=== PATIENT | female | born 1985 | race Two or more races ===

== ENCOUNTER 2017-11-06 17:33 | Emergency (ER) | payer OTHER ==
[2017-11-06 17:43] VITALS: BP 126/57
[2017-11-06] MEDS ORDERED: ACETAMINOPHEN 325 MG TABLET PO ONE (18:44)
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
[2017-11-06] MEDS ORDERED: LIDOCAINE 5% (700 MG) TRANSDERMAL ADH..PATCH TP ONE (19:23)
== END 2017-11-06 19:41 | disposition home or self-care (01) ==
LOC: ER 17:33
DX: S16.1XXA Strain of muscle, fascia and tendon at neck level, initial encounter (principal); S29.012A Strain of muscle and tendon of back wall of thorax, initial encounter; M54.2 Cervicalgia; M54.89 Other dorsalgia; V49.40XA Driver injured in collision with unspecified motor vehicles in traffic accident, initial encounter
CPT/HCPCS: 72070; 72125; 99284

== ENCOUNTER 2017-12-18 14:58 | Emergency (ER) | payer OTHER ==
[2017-12-18] MEDS ORDERED: RINGERS SOLUTION,LACTATED 1,000 ML IV PRN (16:02)
[2017-12-18] MEDS ORDERED: METOCLOPRAMIDE HCL INJ/PF 10 MG/2 ML SDV IV ONE (16:03)
--- NOTE | 2017-12-18 16:05 | ER Document Report ---
ED Medical Screen (RME) - General Chief Complaint: Abdominal Pain Stated Complaint: VOMITING Time Seen by Provider: 12/18/17 16:01 TRAVEL OUTSIDE OF THE [place] IN LAST 30 DAYS: No - HPI Notes: 12/18/17 16:05 coming in today for nausea vomiting states last diagnosis hyperemesis gravidarum. Patient states she did not tolerate Zofran during her . Denies any other complications. Denies any other medical issues. - Related Data Allergies/Adverse Reactions: No Known Allergies Allergy (Verified 11/06/17 17:34) Past Medical History - Social History Chew tobacco use (# tins/day): No Frequency of alcohol use: None Drug Abuse: None Renal/ Medical History: Denies: Hx Peritoneal Dialysis - Immunizations Hx Diphtheria, Pertussis, Tetanus Vaccination: Yes Review of Systems - Review of Systems Gastrointestinal: Nausea, Vomiting -: Yes All other systems reviewed and negative Physical Exam - Vital signs Vitals: Temp Pulse Resp BP Pulse Ox 98.7 F 92 20 120/65 99 12/18/17 15:02 12/18/17 15:02 12/18/17 15:02 12/18/17 15:02 12/18/17 15:02 - Respiratory Respiratory status: No respiratory distress Chest status: Nontender Breath sounds: Normal Chest palpation: Normal Course - Vital Signs Vital signs: Temp Pulse Resp BP Pulse Ox 98.7 F 92 20 120/65 99 12/18/17 15:02 12/18/17 15:02 12/18/17 15:02 12/18/17 15:02 12/18/17 15:02
[2017-12-18 16:42] LABS: ABSOLUTE EOSINOPHILS # (AUTO) 0.1 10^3/uL (0.0-0.6); ABSOLUTE LYMPHOCYTES (AUTO) 1.7 10^3/uL (0.5-4.7); ABSOLUTE MONOCYTES (AUTO) 0.8 10^3/uL (0.1-1.4); ABSOLUTE NEUT (AUTO) 11.7 10^3/uL (1.7-8.2); BASOPHILS % (AUTO) 0.2 % (0-2); EOSINOPHILS % (AUTO) 0.7 % (0-6); HEMATOCRIT 44.4 % (36.0-47.0); HEMOGLOBIN 15.4 g/dL (12.0-15.5); LYMPHOCYTES % (AUTO) 11.8 % (13-45); MEAN CORPUSCULAR HEMOGLOBIN 29.1 pg (27.0-33.4); MEAN CORPUSCULAR HGB CONC 34.7 g/dL (32.0-36.0); MEAN CORPUSCULAR VOLUME 84 fl (80-97); MONOCYTES % (AUTO) 5.7 % (3-13); PLATELET COUNT 233 10^3/uL (150-450); RED BLOOD COUNT 5.28 10^6/uL (3.72-5.28); RED CELL DISTRIBUTION WIDTH 13.8 % (11.5-14.0); SEGMENTED NEUTROPHILS % (AUTO) 81.6 % (42-78); TOTAL CELLS COUNTED % (AUTO) 100 %; WHITE BLOOD COUNT 14.3 10^3/uL (4.0-10.5)
[2017-12-18 16:50] LABS: APPEARANCE,URINE CLOUDY; BILIRUBIN,URINE NEGATIVE (NEGATIVE); COLOR,URINE AMBER; GLUCOSE, URINE NEGATIVE (NEGATIVE); KETONES,URINE 80 mg/dL (NEGATIVE); LEUKOCYTE ESTERASE,URINE LARGE (NEGATIVE); NITRITE,URINE NEGATIVE (NEGATIVE); PROTEIN,URINE NEGATIVE (NEGATIVE); URINE SPECIFIC GRAVITY 1.019
[2017-12-18 16:54] LABS: ALANINE AMINOTRANSFERASE 24 U/L (9-52); ALBUMIN 4.6 g/dL (3.5-5.0); ALKALINE PHOSPHATASE 87 U/L (38-126); ANION GAP 15 (5-19); ASPARTATE AMINO TRANSFERASE 23 U/L (14-36); BILIRUBIN,DIRECT 0.4 mg/dL (0.0-0.4); BILIRUBIN,TOTAL 0.8 mg/dL (0.2-1.3); BLOOD UREA NITROGEN 12 mg/dL (7-20); CALCIUM 9.6 mg/dL (8.4-10.2); CARBON DIOXIDE 22 mmol/L (22-30); CHLORIDE 103 mmol/L (98-107); GLUCOSE 84 mg/dL (75-110); LIPASE 72.2 U/L (23-300); POTASSIUM 4.5 mmol/L (3.6-5.0); SODIUM 139.9 mmol/L (137-145); TOTAL PROTEIN 8.5 g/dL (6.3-8.2)
[2017-12-18] MEDS ORDERED: PROMETHAZINE HCL INJ 25 MG/1 ML VIAL IV ONE (19:57)
[2017-12-18] MEDS ORDERED: RINGERS SOLUTION,LACTATED 1,000 ML IV ONE (19:58)
[2017-12-18] MEDS ORDERED: DIPHENHYDRAMINE HCL 50 MG/ML VIAL IV ONE (19:58)
--- NOTE | 2017-12-18 20:40 | ER Document Report ---
ED General - General Chief Complaint: Abdominal Pain Stated Complaint: VOMITING Time Seen by Provider: 12/18/17 16:01 Mode of Arrival: Ambulatory Information source: Patient, [facility] Records Notes: 32-year-old female with history of hyperemesis gravidarum presents with complaint of nausea, vomiting and inability to tolerate food or fluid that has been ongoing for approximately 2 weeks. Patient is at approximately 7 weeks and 3 days by last menstrual period which was approximately September 28, 2017. She states that her previous she suffered from hyperemesis and was hospitalized multiple times. She states over the last few days she has been intolerable of fluids which prompted her to come in. She denies any abdominal pain, vaginal bleeding. She has not yet seen OB for this . She denies any recent illness, fever, chills, diarrhea. She has had urinary frequency but denies dysuria. TRAVEL OUTSIDE OF THE [place] IN LAST 30 DAYS: No - HPI Onset: Last week Onset/Duration: Gradual, Persistent, Worse Quality of pain: No pain Severity: Moderate Associated symptoms: Nausea, Vomiting Exacerbated by: Food Relieved by: Denies Similar symptoms previously: Yes Recently seen / treated by doctor: No - Related Data Allergies/Adverse Reactions: No Known Allergies Allergy (Verified 11/06/17 17:34) Past Medical History - General Information source: Patient, [facility] Records - Social History Smoking Status: Former Smoker Chew tobacco use (# tins/day): No Frequency of alcohol use: None Drug Abuse: None Lives with: Family Family History: Reviewed & Not Pertinent Patient has suicidal ideation: No Patient has homicidal ideation: No - Medical History Medical History: Negative Renal/ Medical History: Denies: Hx Peritoneal Dialysis - Immunizations Hx Diphtheria, Pertussis, Tetanus Vaccination: Yes Review of Systems - Review of Systems Notes: REVIEW OF SYSTEMS: CONSTITUTIONAL : Denies fever, chills, or sweats. Denies recent illness. Denies weight loss, recent hospitalizations. EENT: Denies visual changes, eye pain. Denies nasal or sinus congestion or discharge. Denies sore throat, oral lesions, difficulty swallowing. CARDIOVASCULAR: Denies chest pain. Denies palpitations. Denies lower extremity edema. RESPIRATORY: Denies cough, cold, or chest congestion. Denies shortness of breath, wheezing. GASTROINTESTINAL: Denies abdominal pain or distention. Denies diarrhea. Denies blood in vomitus, stools, or per rectum. Denies black, tarry stools. Denies constipation. GENITOURINARY: Denies difficulty urinating, painful urination, frequency, blood in urine, or vaginal discharge, vaginal bleeding. MUSCULOSKELETAL: Denies back or neck pain or stiffness. Denies joint pain or swelling. SKIN: Denies rash, lesions or sores. HEMATOLOGIC : Denies easy bruising or bleeding. LYMPHATIC: Denies swollen glands. NEUROLOGICAL: Denies confusion or altered mental status. Denies passing out or loss of consciousness. Denies dizziness or lightheadedness. Denies headache. Denies weakness or paralysis. Denies problems difficulty with ambulation, slurred speech. Denies sensory loss, numbness, or tingling. Denies seizures. PSYCHIATRIC: Denies anxiety or stress. Denies depression, suicidal ideation, or homicidal ideation. Denies visual or auditory hallucinations. Physical Exam - Vital signs Vitals: Temp Pulse Resp BP Pulse Ox 98.7 F 92 20 120/65 99 12/18/17 15:02 12/18/17 15:02 12/18/17 15:02 12/18/17 15:02 12/18/17 15:02 Interpretation: Normal. No: Tachycardic, Febrile - Notes Notes: PHYSICAL EXAMINATION: GENERAL: Actively vomiting HEAD: Atraumatic, normocephalic. EYES: Pupils equal round and reactive to light, extraocular movements intact, conjunctiva are normal. ENT: Nares patent, oropharynx clear without exudates. Moist mucous membranes. NECK: Normal range of motion, supple without lymphadenopathy LUNGS: Breath sounds clear to auscultation bilaterally and equal. No wheezes rales or rhonchi. HEART: Regular rate and rhythm without murmurs ABDOMEN: Soft, nontender, nondistended abdomen. No guarding, no rebound. No masses appreciated. Female : deferred Musculoskeletal: Normal range of motion, no pitting or edema. No cyanosis. NEUROLOGICAL: Cranial nerves grossly intact. Normal speech, normal gait. Normal sensory, motor exams PSYCH: Normal mood, normal affect. SKIN: Warm, Dry, normal turgor, no rashes or lesions noted. Course - Re-evaluation Re-evalutation: Laboratory 12/18/17 12/18/17 12/18/17 16:07 16:18 16:18 WBC 14.3 H RBC 5.28 Hgb 15.4 Hct 44.4 MCV 84 MCH 29.1 MCHC 34.7 RDW 13.8 Plt Count 233 Seg Neutrophils % 81.6 H Lymphocytes % 11.8 L Monocytes % 5.7 Eosinophils % 0.7 Basophils % 0.2 Absolute Neutrophils 11.7 H Absolute Lymphocytes 1.7 Absolute Monocytes 0.8 Absolute Eosinophils 0.1 Absolute Basophils 0.0 Sodium 139.9 Potassium 4.5 Chloride 103 Carbon Dioxide 22 Anion Gap 15 BUN 12 Creatinine 0.61 Est GFR ( Amer) > 60 Est GFR (Non-Af Amer) > 60 Glucose 84 Calcium 9.6 Total Bilirubin 0.8 Direct Bilirubin 0.4 Neonat Total Bilirubin Not Reportable Neonat Direct Bilirubin Not Reportable Neonat Indirect Bili Not Reportable AST 23 ALT 24 Alkaline Phosphatase 87 Total Protein 8.5 H Albumin 4.6 Lipase 72.2 Beta HCG, Quant 80107.00 H Total Beta HCG POSITIVE Urine Color AILEEN Urine Appearance CLOUDY Urine pH 6.0 Ur Specific [place]low 1.019 Urine Protein NEGATIVE Urine Glucose (UA) NEGATIVE Urine Ketones 80 H Urine Blood NEGATIVE Urine Nitrite NEGATIVE Urine Bilirubin NEGATIVE Urine Urobilinogen 4.0 H Ur Leukocyte Esterase LARGE H Urine WBC (Auto) 56 Urine RBC (Auto) 10 Urine Bacteria (Auto) TRACE Squamous Epi Cells Auto 25 Urine Mucus (Auto) OCC Urine Ascorbic Acid NEGATIVE 12/18/17 22:06 32-year-old female with history of hyperemesis gravidarum presents with complaint of nausea, vomiting and inability to tolerate food or fluid that has been ongoing for approximately 2 weeks. Patient is at approximately 7 weeks and 3 days by last menstrual period which was approximately September 28, 2017. She states that her previous she suffered from hyperemesis and was hospitalized multiple times. She states over the last few days she has been intolerable of fluids which prompted her to come in. She denies any abdominal pain, vaginal bleeding. She has not yet seen OB for this . She denies any recent illness, fever, chills, diarrhea. She has had urinary frequency but denies dysuria. Patient was seen by myself upon arrival. Vital signs were reviewed. Patient is afebrile, normotensive and not hypoxic. Patient does not appear toxic or dehydrated. They are in no acute distress. Previous medical records and nursing notes reviewed. Significant findings include urinalysis consistent with UTI. Bedside ultrasound was performed to assess heart tones which were 170. She was given 1 L of lactated Ringer's , 2 L of normal saline, Zofran, Phenergan and Benadryl during her ED course. On reevaluation she states her nausea has improved. She is tolerating fluids. She was encouraged to make an appointment with OB since she is approaching her 8 week ruthann. Ultrasound images attached to chart. Patient will be going home with prescription for Phenergan and Macrobid. Patient provided the opportunity to ask questions, and express concerns. Discharge instructions discussed. Patient is agreeable with discharge home. Return indications explained and discussed with the patient who displays understanding. Patient encouraged to return to the emergency department immediately with any concerns. 12/18/17 23:11 Upon walking into the emergency department patient did not even make it to the waiting room before she began vomiting again. Zofran was administered. I did put a call out to Dr. Anguiano to see if she has any further recommendations. 12/19/17 00:[address] speak to Dr. Anguiano regarding home-going medications for the patient. She recommends Zantac twice daily and likely just. She is willing to admit the patient for hyperemesis. Patient is requesting a few more minutes to see if repeat Zofran dose has worked. 12/19/17 00:14 Patient offered admission. She is declining at this time. She will be discharged home with Zantac and likely just as recommended by Dr. Anguiano. - Vital Signs Vital signs: Temp Pulse Resp BP Pulse Ox 99.0 F 75 18 112/79 100 12/19/17 00:26 12/19/17 00:26 12/19/17 00:26 12/19/17 00:26 12/19/17 00:26 - Laboratory Result Diagrams: 12/18/17 16:18 12/18/17 16:18 Laboratory results interpreted by me: 12/18/17 12/18/17 12/18/17 16:07 16:18 16:18 WBC 14.3 H Seg Neutrophils % 81.6 H Lymphocytes % 11.8 L Absolute Neutrophils 11.7 H Total Protein 8.5 H Beta HCG, Quant 53781.00 H Urine Ketones 80 H Urine Urobilinogen 4.0 H Ur Leukocyte Esterase LARGE H Procedures - Ultrasound/Bedside Ultrasound/Bedside Time completed: 19:00 - Bedside ultrasound to assess for heart tones was performed. heart rate 170. Gestational sac seen in the uterus with yolk sac and fetus. Discharge - Discharge Clinical Impression: Hyperemesis arising during , First trimester Urinary tract infection Qualifiers: Urinary tract infection type: site unspecified Hematuria presence: without hematuria Qualified Code(s): N39.0 - Urinary tract infection, site not specified Condition: Good Disposition: HOME, SELF-CARE Instructions: Hyperemesis Gravidarum ([facility]), Urinary Tract Infection ([facility]) Additional Instructions: Please make an appointment with [facility] or the health department for care. B6 supplements and valerie tea are also helpful for nausea and vomiting during . Prescriptions: Doxylamine Succinate/Vit B6 [Janis Pacheco 10-10 mg Tablet] 1 each PO ASDIR PRN # 30 tablet. PRN Reason: Nausea vomiting Nitrofurantoin Monohyd/M-Cryst [Macrobid 100 mg Capsule] 1 tab PO BID #20 capsule Promethazine HCl [Phenergan 25 mg Tablet] 25 mg PO Q8H #14 tablet Ranitidine HCl [Zantac 150 mg Tablet] 150 mg PO BID #60 tablet Forms: Return to Work
[2017-12-18] MEDS ORDERED: NITROFURANTOIN MONOHYD/M-CRYST 100 MG CAPSULE PO ONE (21:59)
[2017-12-18] MEDS ORDERED: ONDANSETRON ODT 4 MG TAB (6 TAB/ER DISP) PO PRN (22:44)
[2017-12-18] MEDS ORDERED: ONDANSETRON 4 MG TAB.RAPDIS PO ONE (23:08)
[2017-12-18] MEDS ORDERED: ONDANSETRON 4 MG TAB.RAPDIS ONE (23:56)
[2017-12-19 00:27] VITALS: BP 112/79
== END 2017-12-19 00:27 | disposition home or self-care (01) ==
LOC: ER 14:58
DX: O23.41 Unspecified infection of urinary tract in pregnancy, first trimester (principal); O21.9 Vomiting of pregnancy, unspecified; Z3A.01 Less than 8 weeks gestation of pregnancy; Z87.891 Personal history of nicotine dependence
CPT/HCPCS: 99284; 96361; 96374; 96375; 36415; 84702; 83690; 85025; 80053; 81001; J1200; S0119; J2765; J2550; J7120; J8499